=== PATIENT | female | born 1995 | race Caucasian/White ===

== ENCOUNTER 2020-03-01 08:10 | Outpatient (CLI) | payer BC ==
[2020-03-01] MEDS ORDERED: Iopamidol 370 76% 100 ML VIAL ONE (09:00)
--- NOTE | 2020-03-01 09:38 | CT ---
CT Abdomen Pelvis W WO con HISTORY: Microhematuria COMPARISON: None. FINDINGS: The lung bases are clear. No calcified gallstones are seen. The liver, spleen, pancreas and adrenal g lands are normal. No free air, free fluid or lymphadenopathy seen in the abdomen or pelvis. No calculi are noted in the kidneys, ureters or the urinary bladder. No hydroureteronephrosis is seen on either side. Postcontrast images demonstrate no evidence of renal mass. There is normal contrast excretion into the ureters and urinary bladder. A retroaortic left renal vein is present. Uterus and ovaries are present. There is a 3.5 cm right adnexal cystic mass likely ovarian. The small bowel loops are not abnormally dilated. The bony structures are unremarkable. IMPRESSION: No evidence of urinary tract calculi/obstruction or renal mass
== END 2020-03-01 08:11 | disposition home or self-care (01) ==
LOC: NAV CT 08:10
PROVIDERS: ATTEND Urology
DX: R31.29 Other microscopic hematuria (principal); Z80.51 Family history of malignant neoplasm of kidney
CPT/HCPCS: 74178; Q9967

== ENCOUNTER 2021-07-22 12:09 | Emergency (ER) | payer BC ==
[2021-07-22] MEDS ORDERED: Acetaminophen 325 MG TAB ONE (12:43)
[2021-07-22] MEDS ORDERED: Ondansetron ODT 4 MG TAB ONE ×2 (12:44→12:46)
[2021-07-23 20:43] LABS: SARS-CoV-2 PCR by NAA DETECTED (NotDetected)
== END 2021-07-22 13:34 | disposition home or self-care (01) ==
LOC: NAV ERS 12:09
DX: U07.1 COVID-19 (principal)
CPT/HCPCS: 99284; Q0162; U0003; U0005

== ENCOUNTER 2021-07-23 13:08 | Emergency (ER) | payer BC ==
[2021-07-23] MEDS ORDERED: Albuterol Sulfate 2.5 mg/0.5 ml Neb ONE (13:31)
[2021-07-23] MEDS ORDERED: Acetaminophen 500 MG TAB ONE (13:32)
[2021-07-23 13:50] LABS: #Lymphocytes 1.6 thou/uL (1.20-3.40); #Monocytes 0.4 thou/uL (0.11-0.59); #Neutrophils 2.1 thou/uL (1.40-6.50); %Basophils 0.5 % (0.0-1.0); %Eosinophils 0.1 % (0.0-10.0); %Lymphocytes 38.2 % (21.0-51.0); %Monocytes 9.8 % (0.0-10.0); %Neutrophils 51.5 % (42.0-75.0); Mean Corpuscular HGB CONC 31.9 g/dL (32.0-36.0); Mean Corpuscular Hemoglobin 29.3 pg (27.0-31.0); Mean Corpuscular Volume 91.7 fL (78.0-98.0); Mean Platelet Volume 8.4 fL (7.4-10.4); Platelet Count 152 thou/uL (130-400); RBC Distribution Width 11.6 % (11.5-14.5); Red Blood Cell (RBC) Count 4.79 mill/uL (4.20-5.40); White Blood Cell (WBC) Count 4.1 thou/uL (4.8-10.8)
[2021-07-23 14:06] LABS: Anion Gap 14 mmol/L (10-20); BUN (Urea Nitrogen) 7 mg/dL (7.0-18.7); Calc. Creatinine Clearance 0 mL/min (70-130); Calcium 8.9 mg/dL (7.8-10.44); Carbon Dioxide 24 mmol/L (22-29); Chloride 105 mmol/L (98-107); Glucose 108 mg/dL (70-105); Potassium 3.4 mmol/L (3.5-5.1); Sodium 140 mmol/L (136-145)
== END 2021-07-23 18:57 | disposition home or self-care (01) ==
LOC: NAV ERS 13:08
DX: R50.9 Fever, unspecified (principal); R05.9 Cough, unspecified; R09.81 Nasal congestion
CPT/HCPCS: 71046; 80048; 84484; 85025; 85379; 87804; 93005; J7611